=== PATIENT | female | born 1960 | race Caucasian/White ===

== ENCOUNTER → 2017-03-09 | Outpatient (REF) | payer OTHER | LOC: M LAB REF 14:33 → EEVIPCON 14:33 | PROVIDERS: ATTEND Nurse Practitioner Adult Health | DX: L30.9 Dermatitis, unspecified (principal) ==

== ENCOUNTER 2018-02-01 09:10 | Emergency (ER) | payer OTHER | END 2018-02-01 10:48 | disposition home or self-care (01) | LOC: M ED 09:10 | DX: M79.89 Other specified soft tissue disorders (principal); F32.9 Major depressive disorder, single episode, unspecified; Z88.0 Allergy status to penicillin; Z79.899 Other long term (current) drug therapy | CPT/HCPCS: 73130 ==

== ENCOUNTER 2018-08-16 13:08 | Outpatient (RCR) | payer OTHER ==
[~2018-08-16 13:08] MED LIST: IBUP-1022 PO; VITA200016 PO
== END 2018-08-17 ==
LOC: M PT 13:08
PROVIDERS: ATTEND Orthopaedic Surgery
DX: M75.42 Impingement syndrome of left shoulder (principal); M75.101 Unspecified rotator cuff tear or rupture of right shoulder, not specified as traumatic; Z48.89 Encounter for other specified surgical aftercare

== ENCOUNTER 2018-09-14 13:07 | Outpatient (RCR) | payer OTHER | END 2018-09-17 | LOC: M PT 13:07 | PROVIDERS: ATTEND Orthopaedic Surgery | DX: M75.42 Impingement syndrome of left shoulder (principal) ==

== ENCOUNTER 2018-10-13 13:11 | Outpatient (RCR) | payer OTHER | END 2018-10-17 | LOC: M PT 13:11 | PROVIDERS: ATTEND Orthopaedic Surgery | DX: M75.41 Impingement syndrome of right shoulder (principal) ==

== ENCOUNTER → 2020-01-18 | Outpatient (RCR) | payer OTHER | LOC: M PT 12-20 14:16 | PROVIDERS: ATTEND Orthopaedic Surgery | DX: M24.812 Other specific joint derangements of left shoulder, not elsewhere classified (principal); M75.42 Impingement syndrome of left shoulder ==

== ENCOUNTER 2020-02-06 15:15 | Outpatient (RCR) | payer OTHER | END 2020-02-18 | disposition home or self-care (01) | LOC: M PT 15:15 | PROVIDERS: ATTEND Orthopaedic Surgery | DX: M24.812 Other specific joint derangements of left shoulder, not elsewhere classified (principal); M75.42 Impingement syndrome of left shoulder ==

== ENCOUNTER 2021-05-06 15:50 | Emergency (ER) | payer OTHER ==
[~2021-05-06] VITALS: Ht 157.5 cm; Wt 67.0 kg
[2021-05-06] MEDS ORDERED: BUPR150T12 (15:58)
[2021-05-06] MEDS ORDERED: MELO15TA28 (15:58)
[2021-05-06] MEDS ORDERED: ALPR0.5T3 (15:58)
[2021-05-06] MEDS ORDERED: CYCL5TAB (15:58)
[2021-05-06] MEDS ORDERED: PANT40TA29 (15:58)
[2021-05-06] MEDS ORDERED: diazePAM 5MG TABLET PO ONE (18:45)
--- NOTE | 2021-05-06 19:31 | REP ---
INDICATION: concern for tear to bicep, arm twisted lat felt pop COMPARISON: None TECHNIQUE: B-mode ultrasound examination using high-frequency transducer. FINDINGS: Ultrasound examination of the right biceps muscle tendons appear relatively normal. A minimal amount of fluid is identified surrounding the tendinous insertions which is presumed normal. No significant fluid collection or evidence for hematoma/abnormality noted. IMPRESSION: No evidence for tendinous or muscular injury by sonographic evaluation. <Electronically signed by Sánchez Laughlin > 05/06/211926
[2021-05-06 19:56] VITALS: BP 143/93
== END 2021-05-06 19:59 | disposition home or self-care (01) ==
LOC: M ED 15:50
DX: S46.211A Strain of muscle, fascia and tendon of other parts of biceps, right arm, initial encounter (principal); X50.0XXA Overexertion from strenuous movement or load, initial encounter; Y92.9 Unspecified place or not applicable; Y93.9 Activity, unspecified; Y99.0 Civilian activity done for income or pay; Z88.0 Allergy status to penicillin; Z79.899 Other long term (current) drug therapy

== ENCOUNTER 2021-09-16 13:45 | Outpatient (RCR) | payer OTHER ==
[~2021-09-16 13:45] MED LIST changes: +ALPR0.5T3; +BUPR150T12; +CYCL5TAB; +MELO15TA28; +PANT40TA29
== END 2021-09-17 ==
LOC: M PT 13:45
PROVIDERS: ATTEND Orthopaedic Surgery
DX: S46.219A Strain of muscle, fascia and tendon of other parts of biceps, unspecified arm, initial encounter (principal)

== ENCOUNTER 2021-10-15 11:12 | Outpatient (RCR) | payer OTHER | END 2021-10-17 | LOC: M PT 11:12 | PROVIDERS: ATTEND Orthopaedic Surgery | DX: S46.219A Strain of muscle, fascia and tendon of other parts of biceps, unspecified arm, initial encounter (principal); W18.30XA Fall on same level, unspecified, initial encounter; Y92.009 Unspecified place in unspecified non-institutional (private) residence as the place of occurrence of the external cause ==

== ENCOUNTER 2021-11-13 15:15 | Outpatient (RCR) | payer OTHER | END 2021-11-17 | LOC: M PT 15:15 | PROVIDERS: ATTEND Orthopaedic Surgery | DX: S46.211A Strain of muscle, fascia and tendon of other parts of biceps, right arm, initial encounter (principal) ==

== ENCOUNTER 2021-12-15 13:45 | Outpatient (RCR) | payer OTHER | END 2021-12-17 | LOC: M PT 13:45 | PROVIDERS: ATTEND Orthopaedic Surgery | DX: S46.219A Strain of muscle, fascia and tendon of other parts of biceps, unspecified arm, initial encounter (principal) ==

== ENCOUNTER 2022-03-04 17:51 | Emergency (ER) | payer OTHER, SELFPAY ==
[~2022-03-04] VITALS: Ht 157.5 cm; Wt 67.4 kg
[2022-03-04 17:52] VITALS: BP 143/88
== END 2022-03-04 19:33 | disposition left against medical advice (07) ==
LOC: M ED 17:51
DX: Z53.21 Procedure and treatment not carried out due to patient leaving prior to being seen by health care provider (principal)

== ENCOUNTER → 2022-11-19 | Outpatient (REF) | payer OTHER ==
[2022-11-19 17:09] LABS: BASO # 0.1 10^3/uL (0.0-0.2); BASO % 1.1 % (0.0-1.0); EOS # 0.2 10^3/uL (0.0-0.5); HEMATOCRIT 47.9 % (36.0-47.0); HEMOGLOBIN 15.3 g/dl (12.0-15.5); LYMPH # 2.2 10^3/uL (1.5-5.0); LYMPH % 26.9 % (24.0-44.0); MEAN CORPUSCULAR HEMOGLOBIN 29.3 pg (27.0-33.0); MEAN CORPUSCULAR HGB CONC 31.9 g/dl (32.0-36.5); MEAN CORPUSCULAR VOLUME 91.8 fl (80.0-96.0); MONO # 0.8 10^3/uL (0.0-0.8); MONO % 9.5 % (2.0-8.0); NEUTROPHILS # 4.8 10^3/uL (1.5-8.5); PLATELET COUNT, AUTOMATED 301 10^3/uL (150-450); RED BLOOD COUNT 5.22 10^6/uL (4.00-5.40)
[2022-11-19 17:24] LABS: HEMOGLOBIN A1c 5.5 % (4.0-6.0)
[2022-11-19 17:25] LABS: ALBUMIN 3.7 G/DL (3.2-5.2); ALKALINE PHOSPHATASE 97 U/L (46-116); ALT/SGPT 31 U/L (7.0-40); AST/SGOT 23 U/L (<34); BILIRUBIN,TOTAL 0.4 MG/DL (0.3-1.2); BLOOD UREA NITROGEN 13 MG/DL (9-23); CALCIUM LEVEL 8.7 MG/DL (8.3-10.6); CARBON DIOXIDE LEVEL 28 MMOL/L (20-31); CHLORIDE LEVEL 106 MMOL/L (98-107); CHOLESTEROL LEVEL 183 MG/DL (<200); CHOLESTEROL RISK RATIO 2.59 (<5); CREATININE FOR GFR 0.64 MG/DL (0.55-1.30); GLOMERULAR FILTRATION RATE > 60.0 (>45); GLUCOSE, FASTING 92 MG/DL (74-106); HDL CHOLESTEROL 70.5 MG/DL (>40); LDL CHOLESTEROL 92.7 MG/DL (<100); NON-HDL-C 112.5 MG/DL; POTASSIUM SERUM 4.5 MMOL/L (3.5-5.1); SODIUM LEVEL 140 MMOL/L (136-145); TRIGLYCERIDES LEVEL 99 MG/DL (<150)
[2022-11-19 17:30] LABS: FREE T4 0.95 NG/DL (0.89-1.76)
== END ==
LOC: M SFHCCLAY 10:50
PROVIDERS: ATTEND Nurse Practitioner Family
DX: F41.8 Other specified anxiety disorders (principal); Z13.220 Encounter for screening for lipoid disorders; Z13.1 Encounter for screening for diabetes mellitus

== ENCOUNTER → 2023-08-18 | Outpatient (CLI) | payer OTHER | LOC: M EKG 14:31 | PROVIDERS: ATTEND Student in an Organized Health Care Education/Training Program | DX: M25.529 Pain in unspecified elbow (principal) ==

== ENCOUNTER 2023-10-17 14:45 | Outpatient (RCR) | payer OTHER | END 2023-10-18 | LOC: M OT 14:45 | PROVIDERS: ATTEND Student in an Organized Health Care Education/Training Program | DX: S46.212A Strain of muscle, fascia and tendon of other parts of biceps, left arm, initial encounter (principal) ==

== ENCOUNTER 2023-11-16 12:44 | Outpatient (RCR) | payer OTHER | END 2023-11-18 | LOC: M OT 12:44 | PROVIDERS: ATTEND Student in an Organized Health Care Education/Training Program | DX: S46.212A Strain of muscle, fascia and tendon of other parts of biceps, left arm, initial encounter (principal) ==

== ENCOUNTER 2023-12-14 12:45 | Outpatient (RCR) | payer OTHER | END 2023-12-18 | LOC: M OT 12:45 | PROVIDERS: ATTEND Student in an Organized Health Care Education/Training Program | DX: S46.212A Strain of muscle, fascia and tendon of other parts of biceps, left arm, initial encounter (principal) ==

== ENCOUNTER 2023-12-22 01:23 | Emergency (ER) | payer OTHER, SELFPAY ==
[~2023-12-22] VITALS: Ht 157.5 cm; Wt 77.2 kg
[2023-12-22] MEDS: TETRACAINE 0.5% OPHTH SOLN 4ML OS ONE (03:40)
[2023-12-22] MEDS: FLUORESCEIN OPHTH 1MG STRIP OS ONE (03:40)
[2023-12-22] MEDS ORDERED: ERYT5OIN25 OS (03:57)
[2023-12-22] MEDS: ERYTHROMYCIN OPHTH OINT OS ONE (04:00)
[2023-12-22 04:14] VITALS: BP 132/91; TEMP 97.8; O2SAT 98
== END 2023-12-22 04:20 | disposition home or self-care (01) ==
LOC: M ED 01:23
DX: S05.02XA Injury of conjunctiva and corneal abrasion without foreign body, left eye, initial encounter (principal); Y92.9 Unspecified place or not applicable; Y93.9 Activity, unspecified; Y99.9 Unspecified external cause status; Z88.0 Allergy status to penicillin; Z79.2 Long term (current) use of antibiotics; Z79.899 Other long term (current) drug therapy

== ENCOUNTER 2023-12-30 10:30 | Outpatient (RCR) | payer OTHER ==
[~2023-12-30 10:30] MED LIST changes: +ERYT5OIN25 OS
== END 2024-01-18 ==
LOC: M OT 10:30
PROVIDERS: ATTEND Student in an Organized Health Care Education/Training Program
DX: S46.212A Strain of muscle, fascia and tendon of other parts of biceps, left arm, initial encounter (principal)

== ENCOUNTER → 2024-07-04 | Outpatient (CLI) | payer OTHER ==
[~2024-07-04] MED LIST changes: -CYCL5TAB; +CYCL5TAB4
== END ==
LOC: M CLY 15:46
PROVIDERS: ATTEND Nurse Practitioner Family
DX: M19.072 Primary osteoarthritis, left ankle and foot (principal); Q66.89 Other specified congenital deformities of feet; M79.672 Pain in left foot

== ENCOUNTER → 2024-09-14 | Outpatient (CLI) | payer OTHER | LOC: M WHC 15:07 | PROVIDERS: ATTEND Nurse Practitioner Family | DX: Z12.31 Encounter for screening mammogram for malignant neoplasm of breast (principal) ==

== ENCOUNTER → 2025-02-12 | Outpatient (CLI) | payer OTHER ==
[~2025-02-12] MED LIST changes: +ACET1TAB55 PO; +ALPR0.5T3 PO; -IBUP-1022 PO; +IBUP200C27 PO; +IBUP600T42 PO; +VENL75CA47 PO; +VITA-243 PO; +VITA100093 PO
[2025-02-12 12:35] LABS: BASO # 0.1 10^3/uL (0.0-0.2); BASO % 0.7 % (0.0-1.0); EOS # 0.2 10^3/uL (0.0-0.5); EOS % 2.2 % (0.0-3.0); LYMPH # 2.1 10^3/uL (1.5-5.0); LYMPH % 23.2 % (24.0-44.0); MONO # 0.8 10^3/uL (0.0-0.8); MONO % 8.8 % (2.0-8.0); NEUTROPHILS # 5.8 10^3/uL (1.5-8.5); NEUTROPHILS % 64.8 % (36.0-66.0); PLATELET COUNT, AUTOMATED 297 10^3/uL (150-450)
[2025-02-12 12:36] LABS: APPEARANCE, URINE HAZY (CLEAR); BACTERIA, URINE AUTO NEGATIVE (NEGATIVE); BILIRUBIN, URINE AUTO NEGATIVE (NEGATIVE); BLOOD, URINE BLOOD 1+ (NEGATIVE); GLUCOSE, URINE (UA) AUTO NEGATIVE (NEGATIVE); KETONE, URINE AUTO NEGATIVE (NEGATIVE); LEUKOCYTE ESTERASE, URINE AUTO NEGATIVE (NEGATIVE); MUCUS, URINE SMALL (NEGATIVE); NITRITE, URINE AUTO NEGATIVE (NEGATIVE); PROTEIN, URINE AUTO NEGATIVE (NEGATIVE); RBC, URINE AUTO 3 /HPF (0-3); SPECIFIC GRAVITY URINE AUTO 1.026 (1.002-1.035); SQUAMOUS EPITHELIAL CELL UR AU 2 /HPF (0-6); UROBILINOGEN, URINE AUTO 0.2 mg/dL (0.0-2.0); WBC, URINE AUTO 2 /HPF (0-3)
[2025-02-12 12:45] LABS: ESTIMATED AVERAGE GLUCOSE 120.0 MG/DL (60-110)
[2025-02-12 13:05] LABS: CALCIUM LEVEL 9.9 MG/DL (8.3-10.6); CARBON DIOXIDE LEVEL 29 MMOL/L (20-31); CHLORIDE LEVEL 101 MMOL/L (98-107); CREATININE FOR GFR 0.68 MG/DL (0.55-1.30); GLOMERULAR FILTRATION RATE > 90.0 (>45); POTASSIUM SERUM 4.1 MMOL/L (3.5-5.1); SODIUM LEVEL 141 MMOL/L (136-145)
== END ==
LOC: M LAB 11:39
PROVIDERS: ATTEND Student in an Organized Health Care Education/Training Program
DX: M18.12 Unilateral primary osteoarthritis of first carpometacarpal joint, left hand (principal)